=== PATIENT | male | born 1965 | race Caucasian/White ===

== ENCOUNTER 2021-06-15 14:59 | Inpatient (IN) | payer OTHER ==
[2021-06-15 19:25] VITALS: BMI 17.9
[2021-06-15] MEDS ORDERED: hydrOXYzine PAMOATE 25 MG CAPSULE (FP) PO PRN (20:20)
[2021-06-15] MEDS ORDERED: MAGNESIUM CITRATE 300 ML BOTTLE PO PRN (20:20)
[2021-06-15] MEDS ORDERED: ONDANSETRON *ODT* 4 MG TABLET SL PRN (20:20)
[2021-06-15] MEDS ORDERED: ACETAMINOPHEN 325 MG TABLET (FP) PO PRN ×2 (20:20)
[2021-06-15] MEDS ORDERED: METHOCARBAMOL 500 MG TABLET PO PRN (20:20)
[2021-06-15] MEDS ORDERED: MENTHOL/PHENOL 1 EACH UD MM PRN (20:20)
[2021-06-15] MEDS ORDERED: BISMUTH SUBSALICYLATE 524 MG/30 ML PO PRN (20:20)
[2021-06-15] MEDS ORDERED: MAGNESIUM HYDROX 2400MG/30ML ORAL SUSPENSION 30 ML CUP PO PRN (20:20)
[2021-06-15] MEDS ORDERED: MAG HYDROX/AL HYDROX/SIMETH 30 ML UNIT-DOSE CUP PO PRN (20:20)
[2021-06-15] MEDS ORDERED: DICYCLOMINE HCL 10 MG CAPSULE PO PRN (20:20)
[2021-06-15] MEDS ORDERED: LOPERAMIDE HCL 2 MG CAPSULE PO PRN (20:20)
[2021-06-15] MEDS ORDERED: cloNIDine HCL 0.1 MG TABLET PO PRN (20:24)
[2021-06-15] MEDS ORDERED: diazePAM 5 MG TABLET PO PRN (20:26)
[2021-06-15] MEDS ORDERED: methaDONE HCL 10 MG TABLET (FOR DETOX USE ONLY) PO ONE (20:45)
[2021-06-15] MEDS: MELATONIN 5 MG TABLETS PO SCH (22:13)
[2021-06-15] MEDS: THIAMINE HCL 100 MG TABLET (FP) PO SCH (22:14)
[2021-06-15] MEDS: diazePAM 5 MG TABLET PO SCH (22:14)
[2021-06-16] MEDS: diazePAM 5 MG TABLET PO SCH ×4 (06:08→22:03)
[2021-06-16] MEDS: PRENATAL VITAMINS W/ FOLIC ACID TABLET (FP) PO SCH (10:13)
[2021-06-16 10:54] LABS: HEMATOCRIT 36.3 % (35.4-49); HEMOGLOBIN 12.4 GM/dL (11.7-16.9); MCH 35.3 pg (25.7-33.7); MCHC 34.2 g/dl (32.0-35.9); MEAN CELL VOLUME 103.1 fl (80-96); MEAN PLT VOLUME 8.1 fl (7.5-11.1); PLATELET COUNT 144 10^3/uL (134-434); RBC 3.52 M/mm3 (4.00-5.60)
[2021-06-16 11:05] LABS: CALCIUM 8.5 mg/dL (8.5-10.1)
[2021-06-16 11:06] LABS: ALBUMIN 2.4 g/dl (3.4-5.0); BLOOD UREA NITROGEN 16.8 mg/dL (7-18)
[2021-06-16 11:09] LABS: CREATININE 0.7 mg/dL (0.55-1.3)
[2021-06-16 11:10] LABS: BILIRUBIN,TOTAL 0.5 mg/dL (0.2-1)
[2021-06-16] MEDS ORDERED: METHOCARBAMOL 500 MG TABLET PO PRN (12:18)
[2021-06-16] MEDS: METHOCARBAMOL 500 MG TABLET PO PRN ×2 (12:44→22:04)
[2021-06-16] MEDS: NICOTINE 10 MG CARTRIDGE (INHALER) IH PRN ×3 (12:51→22:05)
[2021-06-16] MEDS: IBUPROFEN 400 MG TABLET (FP) PO PRN (19:00)
[2021-06-16] MEDS: MELATONIN 5 MG TABLETS PO SCH (22:02)
[2021-06-16] MEDS: THIAMINE HCL 100 MG TABLET (FP) PO SCH (22:03)
[2021-06-17] MEDS: diazePAM 5 MG TABLET PO SCH ×2 (05:49→18:01)
[2021-06-17] MEDS: NICOTINE 10 MG CARTRIDGE (INHALER) IH PRN ×3 (08:48→18:04)
[2021-06-17] MEDS ORDERED: methaDONE HCL 10 MG TABLET (FOR DETOX USE ONLY) PO ONE (10:00)
[2021-06-17] MEDS: PRENATAL VITAMINS W/ FOLIC ACID TABLET (FP) PO SCH (10:03)
[2021-06-17] MEDS: METHOCARBAMOL 500 MG TABLET PO PRN ×2 (10:04→18:03)
[2021-06-17 11:17] LABS: GLUCOSE,FASTING 96 mg/dL (74-106)
[2021-06-17 11:20] LABS: SGOT/AST 130 U/L (15-37); SGPT/ALT 125 U/L (13-61)
[2021-06-17] MEDS: IBUPROFEN 400 MG TABLET (FP) PO PRN (15:06)
[2021-06-17] MEDS: THIAMINE HCL 100 MG TABLET (FP) PO SCH (21:58)
[2021-06-17] MEDS: MELATONIN 5 MG TABLETS PO SCH (21:58)
[2021-06-17] MEDS: NICOTINE POLACRILEX 2 MG GUM BUC PRN (22:01)
[2021-06-18] MEDS ORDERED: diazePAM 5 MG TABLET PO ONE (06:00)
[2021-06-18] MEDS: NICOTINE POLACRILEX 2 MG GUM BUC PRN (06:38)
[2021-06-18] MEDS: NICOTINE 10 MG CARTRIDGE (INHALER) IH PRN (06:38)
[2021-06-18] MEDS: METHOCARBAMOL 500 MG TABLET PO PRN (07:34)
[2021-06-18 09:08] VITALS: BP 119/70; PULSE 87; TEMP 96.9
== END 2021-06-18 09:33 | disposition home or self-care (01) | DRG 773 ==
LOC: YASAS 14:59 → Y3N 19:56
PROVIDERS: ADMIT Allergy & Immunology; ATTEND Allergy & Immunology
PROC: HZ2ZZZZ Detoxification Services for Substance Abuse Treatment (ICD-10-PCS; principal; 2021-06-15)
DX: F11.23 Opioid dependence with withdrawal (principal); F10.230 Alcohol dependence with withdrawal, uncomplicated; F17.210 Nicotine dependence, cigarettes, uncomplicated; M54.50 Low back pain, unspecified; R94.5 Abnormal results of liver function studies
CPT/HCPCS: 36415; 80053; 82947; 84450; 84460; 85027; 86780

== ENCOUNTER 2021-09-06 10:58 | Inpatient (IN) | payer OTHER ==
[2021-09-06] MEDS ORDERED: ONDANSETRON *ODT* 4 MG TABLET SL PRN (11:21)
[2021-09-06] MEDS ORDERED: MENTHOL/PHENOL 1 EACH UD MM PRN (11:21)
[2021-09-06] MEDS ORDERED: BISMUTH SUBSALICYLATE 262 MG/15 ML BTL PO PRN (11:21)
[2021-09-06] MEDS ORDERED: MAGNESIUM HYDROX 2400MG/30ML ORAL SUSPENSION 30 ML CUP PO PRN (11:21)
[2021-09-06] MEDS ORDERED: MAG HYDROX/AL HYDROX/SIMETH 30 ML UNIT-DOSE CUP PO PRN (11:21)
[2021-09-06] MEDS ORDERED: ACETAMINOPHEN 325 MG TABLET (FP) PO PRN ×2 (11:21)
[2021-09-06] MEDS ORDERED: MAGNESIUM CITRATE 300 ML BOTTLE PO PRN (11:21)
[2021-09-06 11:29] VITALS: BMI 18.9
[2021-09-06] MEDS: NICOTINE 21 MG/24 HOURS TOPICAL PATCH TD SCH (13:39)
[2021-09-06] MEDS: PRENATAL VITAMINS W/ FOLIC ACID TABLET (FP) PO SCH (13:39)
[2021-09-06 13:44] LABS: HEMATOCRIT 39.8 % (35.4-49); HEMOGLOBIN 13.9 GM/dL (11.7-16.9); MCH 34.5 pg (25.7-33.7); MCHC 34.8 g/dl (32.0-35.9); MEAN CELL VOLUME 99.1 fl (80-96); MEAN PLT VOLUME 7.9 fl (7.5-11.1); PLATELET COUNT 163 10^3/uL (134-434); RBC 4.02 M/mm3 (4.00-5.60); RDW 13.5 % (11.9-15.9); WHITE BLOOD COUNT 7.2 K/mm3 (4.0-10.0)
[2021-09-06] MEDS: NICOTINE 10 MG CARTRIDGE (INHALER) IH PRN ×3 (13:55→22:51)
[2021-09-06] MEDS ORDERED: hydrOXYzine PAMOATE 25 MG CAPSULE (FP) PO SCH (14:00)
[2021-09-06 14:35] LABS: BILIRUBIN,TOTAL 0.5 mg/dL (0.2-1)
[2021-09-06 14:40] LABS: CALCIUM 8.8 mg/dL (8.5-10.1)
[2021-09-06 14:41] LABS: ALBUMIN 3.4 g/dl (3.4-5.0); BLOOD UREA NITROGEN 12.6 mg/dL (7-18)
[2021-09-06 14:44] LABS: CREATININE 0.7 mg/dL (0.55-1.3); TOT PROT 7.4 g/dl (6.4-8.2)
[2021-09-06] MEDS ORDERED: diazePAM 5 MG TABLET PO PRN (17:03)
[2021-09-06] MEDS ORDERED: methaDONE HCL 10 MG TABLET (FOR DETOX USE ONLY) PO ONE (17:05)
[2021-09-06] MEDS: diazePAM 5 MG TABLET PO SCH (17:16)
[2021-09-06] MEDS: hydrOXYzine PAMOATE 25 MG CAPSULE (FP) PO PRN (22:49)
[2021-09-06] MEDS: THIAMINE HCL 100 MG TABLET (FP) PO SCH (22:49)
[2021-09-06] MEDS: cloNIDine HCL 0.1 MG TABLET PO PRN (22:49)
[2021-09-06] MEDS: MELATONIN 5 MG TABLETS PO SCH (22:50)
[2021-09-07] MEDS: diazePAM 5 MG TABLET PO SCH ×3 (00:20→10:34)
[2021-09-07] MEDS: IBUPROFEN 400 MG TABLET (FP) PO PRN ×2 (09:12→19:56)
[2021-09-07] MEDS: hydrOXYzine PAMOATE 25 MG CAPSULE (FP) PO PRN ×3 (09:13→22:44)
[2021-09-07] MEDS: METHOCARBAMOL 500 MG TABLET PO PRN ×2 (09:13→18:19)
[2021-09-07] MEDS: PRENATAL VITAMINS W/ FOLIC ACID TABLET (FP) PO SCH (10:30)
[2021-09-07] MEDS: NICOTINE 21 MG/24 HOURS TOPICAL PATCH TD SCH (10:33)
[2021-09-07] MEDS: NICOTINE 10 MG CARTRIDGE (INHALER) IH PRN (10:35)
[2021-09-07] MEDS: cloNIDine HCL 0.1 MG TABLET PO PRN ×2 (11:40→19:56)
[2021-09-07] MEDS ORDERED: LORazepam 0.5 MG TABLET PO PRN (16:25)
[2021-09-07] MEDS: LORazepam 0.5 MG TABLET PO SCH ×2 (18:18→22:44)
[2021-09-07] MEDS: MELATONIN 5 MG TABLETS PO SCH (22:44)
[2021-09-07] MEDS: THIAMINE HCL 100 MG TABLET (FP) PO SCH (22:44)
[2021-09-08] MEDS: cloNIDine HCL 0.1 MG TABLET PO PRN ×2 (01:17→08:30)
[2021-09-08] MEDS: METHOCARBAMOL 500 MG TABLET PO PRN ×2 (01:17→08:30)
[2021-09-08] MEDS: IBUPROFEN 400 MG TABLET (FP) PO PRN ×2 (01:18→08:30)
[2021-09-08] MEDS: hydrOXYzine PAMOATE 25 MG CAPSULE (FP) PO PRN (05:43)
[2021-09-08] MEDS ORDERED: LORazepam 0.5 MG TABLET PO SCH (06:00)
[2021-09-08] MEDS ORDERED: diazePAM 5 MG TABLET PO SCH (06:00)
[2021-09-08 09:36] VITALS: BP 136/90; PULSE 96; TEMP 98.7
[2021-09-08] MEDS: PRENATAL VITAMINS W/ FOLIC ACID TABLET (FP) PO SCH (09:50)
[2021-09-08] MEDS: NICOTINE 10 MG CARTRIDGE (INHALER) IH PRN (09:52)
[2021-09-08] MEDS: NICOTINE 21 MG/24 HOURS TOPICAL PATCH TD SCH (09:55)
[2021-09-08] MEDS ORDERED: methaDONE HCL 10 MG TABLET (FOR DETOX USE ONLY) PO ONE (10:00)
[2021-09-09] MEDS ORDERED: diazePAM 5 MG TABLET PO SCH (06:00)
[2021-09-09] MEDS ORDERED: LORazepam 0.5 MG TABLET PO SCH (06:00)
[2021-09-09] MEDS ORDERED: methaDONE HCL 10 MG TABLET (FOR DETOX USE ONLY) PO ONE (10:00)
[2021-09-10] MEDS ORDERED: LORazepam 0.5 MG TABLET PO ONE (05:00)
[2021-09-10] MEDS ORDERED: diazePAM 5 MG TABLET PO ONE (06:00)
== END 2021-09-08 10:55 | disposition left against medical advice (07) | DRG 770 ==
LOC: YASAS 10:58 → Y6N 11:57
PROVIDERS: ADMIT Allergy & Immunology; ATTEND Allergy & Immunology
PROC: HZ2ZZZZ Detoxification Services for Substance Abuse Treatment (ICD-10-PCS; principal; 2021-09-06)
DX: F11.23 Opioid dependence with withdrawal (principal); F10.230 Alcohol dependence with withdrawal, uncomplicated; F17.210 Nicotine dependence, cigarettes, uncomplicated; R73.09 Other abnormal glucose; R74.01 Elevation of levels of liver transaminase levels
CPT/HCPCS: 36415; 80053; 82962; 85027; 86780; C9803-CS; U0003; U0005